=== PATIENT | male | born 1995 | race African-American/Black ===

== ENCOUNTER → 2016-03-02 | Outpatient (CLI) | payer OTHER | LOC: COL.RAD 12:00 | DX: H93.8X2 Other specified disorders of left ear (principal) ==

== ENCOUNTER → 2016-03-30 | Outpatient (CLI) | payer OTHER | LOC: COL.RAD 14:09 | DX: S43.085S Other dislocation of left shoulder joint, sequela (principal); X58.XXXS Exposure to other specified factors, sequela; M24.012 Loose body in left shoulder; M25.512 Pain in left shoulder | CPT/HCPCS: A9585; Q9967 ==

== ENCOUNTER → 2017-11-01 | Outpatient (CLI) | payer OTHER | LOC: COL.RAD 13:15 | DX: S43.014D Anterior dislocation of right humerus, subsequent encounter (principal); S43.491D Other sprain of right shoulder joint, subsequent encounter; Y93.61 Activity, american tackle football | CPT/HCPCS: A9585; Q9967 ==

== ENCOUNTER → 2017-12-04 | Outpatient (CLI) | payer OTHER | LOC: COL.VAS 13:00 | DX: Z13.6 Encounter for screening for cardiovascular disorders (principal); M79.89 Other specified soft tissue disorders; Z98.890 Other specified postprocedural states ==

== ENCOUNTER 2019-03-13 13:14 | Emergency (ER) | payer OTHER ==
[~2019-03-13] VITALS: Ht 185.4 cm; Wt 95.5 kg
[2019-03-13 13:20] VITALS: BP 133/78; TEMP 98.7
[2019-03-13 15:00] VITALS: PULSE 91
== END 2019-03-13 15:10 | disposition home or self-care (01) ==
LOC: COL.ER 13:14
DX: S61.412A Laceration without foreign body of left hand, initial encounter (principal); W22.8XXA Striking against or struck by other objects, initial encounter